=== PATIENT | female | born 1935 | race Caucasian/White ===

== ENCOUNTER → 2017-07-11 08:04 | Outpatient (CLI) | payer MEDICARE, BC | END | disposition home or self-care (01) | LOC: D.RT 08:00 | DX: R06.09 Other forms of dyspnea (principal) ==

== ENCOUNTER → 2017-12-18 13:02 | Outpatient (CLI) | payer MEDICARE, BC ==
[~2017-12-18 13:02] MED LIST: AMITRIPTYLINE100 MG PO; CARDURA1 MG PO; CELEXA20 MG PO; GLUCOPHAGE500 MG PO; HYZAAR 100-25 T1 TAB PO; K-TAB10 MEQ PO; MOBIC7.5 MG PO; NORVASC2.5 MG PO; OXYBUTYNIN CHLOR5 MG PO; PRAVASTATIN SOD10 MG PO; TEMAZEPAM30 MG PO; TRILEPTAL150 MG PO
[2017-12-26 08:17] VITALS: BMI 30.1
== END | disposition home or self-care (01) ==
LOC: D.RT 13:02
DX: J98.6 Disorders of diaphragm (principal); J45.909 Unspecified asthma, uncomplicated

== ENCOUNTER 2017-12-26 07:32 | Outpatient (CLI) | payer MEDICARE, BC ==
[~2017-12-26] VITALS: Ht 162.6 cm; Wt 79.5 kg
--- NOTE | ~2017-12-26 | OP ---
PATIENT NAME: CHARMAINE FREEMAN MEDICAL RECORD: [id number] :33 LOCATION:D.CAT ADMISSION DATE: SURGEON: HOLLIE BEGUM MD DATE OF OPERATION: 12/26/2017 DATE OF SERVICE: 12/26/2017 PROCEDURES: 1. Left heart catheterization. 2. Selective coronary angiography. 3. Left ventriculogram. 4. Intravascular ultrasound. INDICATION: Chest pain compatible with angina. PROCEDURE IN DETAIL: After informed consent was obtained and after a detailed description of risks, benefits as well as alternative therapies, the patient elected to proceed with angiogram and heart catheterization. The right radial area was prepped, draped in normal sterile fashion. Right radial artery was cannulated via modified Seldinger technique with placement of 5-Kiswahili sheath. All catheters exchanged through this sheath. FINDINGS: Left ventriculogram was performed in standard 30-degree ESTRELLA view, reveals good cardiac wall motion throughout all segments. Overall ejection fraction estimated 60%. SELECTIVE CORONARY ANGIOGRAPHY: Left main, left anterior descending, left circumflex, and right coronary artery are all smooth-walled vessels. No angiographic evidence of coronary artery disease. There was a questionable area in a band on the left anterior descending; however, intravascular ultrasound revealed no disease, only a bend in the artery at this point. OVERALL IMPRESSION: No coronary disease is present. Chest pain is noncardiac in etiology. TRANSINT:[id number] Voice Confirmation ID: [id number] DOCUMENT ID: [id number] HOLLIE BEGUM MD at 1950 CC: [id number] DICTATION DATE: 12/26/17 0955 SENIOR QC TECHNICIAN: 12/26/17 1054 [facility] CLI 12/26/[address] [address]
--- NOTE | ~2017-12-26 | HEMODYNAMI ---
PATIENT:CHARMAINE FREEMAN MEDICAL RECORD: [id number] : 33 LOCATION:[facility] ADMISSION DATE: 12/26/17 Generatedon:12/26/20179:55 Patient name: CHARMAINE FREEMAN Patient #: [id number] SSN: : 1935 Date of study: 12/26/2017 Page: Of Hemodynamic Procedure Report Patient Data Patient Demographics Procedure consent was obtained First Name: CHARMAINE Gender: Female Last Name: PETE : 1935 Middle Initial: A Age: 82 year(s) Patient #: [id number] Race: Unknown Additional ID: [id number] Contact details Address: [address] [place] [address] State: [place] City: [facility] Zip code: [address] Past Medical History Allergies Allergen Reaction Date Comments Reported Penicillins 12/26/2017 Admission Admission Data Admission Date: 12/26/2017 Admission Time: 7:32 Height (in.): 5.5 BSA: 0.32 (m2) Height (cm.): 13.97 BMI: 4346.25 (kg/m2) Weight (lbs.): 187 Weight (kg.): 84.82 Lab Results Lab Result Date: 12/26/2017 Lab Result Time: 0:00 Biochemistry Name Units Result Min Max BUN mg/dl 12 --(-*--)-- 7 18 Creatinine mg/dl 0.9 --(-*--)-- 0.6 1.3 CBC Name Units Result Min Max Hemoglobin g/dl 12.5 *-(----)-- 13.5 17.5 Procedure Procedure Types Cath Procedure Diagnostic Procedure [facility] w/Coronaries FFR/IVUS Intra-Coronary IVUS Initial Procedure Description Procedure Date Procedure Date: 12/26/2017 Procedure Start Time: 9:42 Procedure End Time: 9:54 Procedure Staff Name Function Angel Mccauley MD Performing Physician Delonte Jimenez RT Monitor Stephanie Campoverde RT Scrub Colten Lorigan RN Nurse Procedure Data Cath Procedure Fluoroscopy Diagnostic fluoroscopy Total fluoroscopy Time: 2.7 time: 2.7 min min Diagnostic fluoroscopy Total fluoroscopy dose: 378 dose: 378 mGy mGy Contrast Material Contrast Material Type Amount (ml) Isovue 300 49 Entry Location Entry Primary Successful Side Size Upsize Upsize Entry Closure Conner ccessful Closure Location (Fr) 1 (Fr) 2 (Fr) Remarks Device Remarks Radial Right 6 Fr Mechanical artery Short Compression Diagnostic catheters Device Type Used For End Catheter Placement DIAGNOSTIC Denison 110cm 5 LV Angiography Fr catheter ([id number]) DIAGNOSTIC AR 2 MOD 5 Fr Right Coronary catheter ([id number]) Angiography Procedure Complications No complications Procedure Medications Medication Administration Route Dosage 0.9% NaCl I.V. 100 ml/hr Oxygen etCO2 Nasal cannula 2 l/min Heparin Flush Bag added to field 2 bags (1000units/500ml NS) Lidocaine 2% added to field 20 Radial Cocktail added to field 1 syringe (Verapomil 2mg/Nitro 400mcg/Heparin 1500units) Versed I.V. 2 mg Fentanyl I.V. 100 mcg Versed I.V. 1 mg Versed I.V. 1 mg Radial Cocktail I.A. 1 syringe (Verapomil 2mg/Nitro 400mcg/Heparin 1500units) Hemodynamics Rest BSA: 0.32 (m2) HGB: 12.5 (g/dl) O2 Consumption: Estimated: 29.23 (ml/min) O2 Con sumption indexed: Estimated:91.34 (ml/min/m) Heart Rate: 76 (bpm) Pressure Samples Time Site Value (mmHg) Purpose Heart Use Rate(bpm) 9:44 LV 64/43,61 Snapshot 86 Snapshots Pre Cath Intra NCS Post Cath Vital Signs Time Heart Resp SPO2 etCO2 NIBP (mmHg) Rhythm Pain Sedation Rate (ipm) (%) (mmHg) Status Level (bpm) 9:00:02 80 18 99 36.9 137/80(112) NSR 0 (11) 10(A) , No pain 9:04:47 71 12 96 41.4 130/77(104) NSR 0 (11) 10(A) , No pain 9:09:30 72 19 95 27.1 122/69(103) NSR 0 (11) 10(A) , No pain 9:14:14 74 18 95 18.1 121/74(100) NSR 0 (11) 10(A) , No pain 9:18:59 72 19 95 12.8 123/75(108) NSR 0 (11) 10(A) , No pain 9:23:44 76 14 96 12 131/74(104) NSR 0 (11) 10(A) , No pain 9:28:29 73 15 96 40.6 117/71(103) NSR 0 (11) 10(A) , No pain 9:33:11 74 16 96 39.9 120/65(102) NSR 0 (11) 10(A) , No pain 9:37:56 75 11 96 31.6 132/74(89) NSR 0 (11) 10(A) , No pain 9:42:41 78 12 96 39.2 121/70(95) NSR 0 (11) 9(A) , No pain 9:47:23 88 12 91 35.4 88/44(82) NSR 0 (11) 9(A) , No pain 9:52:41 89 12 93 36.1 109/59(76) NSR 0 (11) 9(A) , No pain Medications Time Medication Route Dose Verified Delivered Reason Notes Effectiveness by by 8:56:27 0.9% NaCl I.V. 100 Colten Colten Per ml/hr Millie Pinto physician RN RN 8:56:41 Oxygen etCO2 2 l/min Colten Colten Per Nasal Millie Pinto physician cannula RN RN 8:57:00 Heparin Flush added 2 bags Colten Colten used for Bag to Lorjessica Pinto procedure (1000units/500ml RN RN NS) 8:57:10 Lidocaine 2% added 20ml Colten Colten for local to vial Lorigan Lorigan anesthetic field SLADIVAR RN 8:57:30 Radial Cocktail added 1 Colten Colten used for (Verapomil to syringe Lorigan Lorigan procedure 2mg/Nitro field SALDIVAR RN 400mcg/Heparin 1500units) 9:36:12 Versed I.V. 2 mg Colten Colten for sedation Millie Pinto RN RN 9:36:26 Fentanyl I.V. 100 mcg Colten Colten for sedation Millie Pinto RN RN 9:39:56 Versed I.V. 1 mg Colten Colten for sedation Millie Pinto RN RN 9:41:03 Versed I.V. 1 mg Colten Abel for sedation Millie Pinto RN, RN 9:42:36 Radial Cocktail I.A. 1 Colten Ortiz for (Verapomil syringe Millie Mccauley MD vasodilation 2mg/Nitro RN 400mcg/Heparin 1500units) Procedure Log Time Note 8:30:28 Colten Pinto RN sent for patient. Start room use. 8:43:33 Signed procedure consent form obtained from patient. 8:43:34 Time tracking: Regular hours (M-F 7:00 - 5:00) 8:43:38 Plan of Care:Hemodynamics will remain stable., Cardiac rhythm will remain stable., Comfort level will be maintained., Respiratory function will remain adequate., Patient/ family verbilizes understanding of procedure., Procedure tolerated without complication., Recovers from procedure without complications.. 8:44:46 H&P Date Dictated: 12/21/2017 Within 30 days and on chart., H&P Addendum completed by physician on day of procedure. (MUST COMPLETE FOR ALL OUTPATIENTS). 8:44:55 Patient Height : 5.5 inches 8:45:00 Patient Weight : 187 lbs 8:45:09 Patient allergic to Penicillins 8:46:18 Lab Result : BUN 12 mg/dl 8:46:18 Lab Result : Creatinine 0.9 mg/dl 8:46:18 Lab Result : Hemoglobin 12.5 g/dl 8:48:11 Patient received from Pre/Post Procedure Room to CCL 1 Alert and oriented. Tansferred to table in Supine position. 8:48:11 Warm blankets applied, and main hugger turned on for patient comfort. 8:48:12 Correct patient and procedure confirmed by team. 8:48:12 ECG and BP/O2 sat monitors applied to patient. 8:56:27 0.9% NaCl 100 ml/hr I.V. was administered by Colten Pinto RN; Per physician; 8:56:41 Oxygen 2 l/min etCO2 Nasal cannula was administered by Colten Pinto RN; Per physician; 8:57:00 Heparin Flush Bag (1000units/500ml NS) 2 bags added to field was administered by Colten Pinto RN; used for procedure; 8:57:10 Lidocaine 2% 20ml vial added to field was administered by Colten Pinto RN; for local anesthetic; 8:57:30 Radial Cocktail (Verapomil 2mg/Nitro 400mcg/Heparin 1500units) 1 syringe added to field was administered by Colten Pinto RN; used for procedure; 8:57:33 Vital chart was started 8:58:44 Baseline sample Acquired. 8:58:47 Rhythm: sinus rhythm 8:58:48 Full Disclosure recording started 8:58:50 Pre-procedure instructions explained to patient. 8:58:50 Pre-op teaching completed and patient verbalized understanding. 8:58:52 Family in patients room. 8:58:59 Patient NPO since Midnight. 8:59:05 Is the patient allergic to Iodine/contrast media? No. 8:59:07 Is patient on blood thinner?No 8:59:09 Patient diabetic? Yes. 8:59:10 If diabetic: On Metformin? Yes 8:59:14 If on Metformin: Last Dose? 12/24/2017 8:59:16 ----Pre-sedation anethsthesia assessment.---- 8:59:17 Snore? No 8:59:21 Previous problem with sedation/anesthesia? No ? 8:59:22 Sleep apnea? No 8:59:25 Deviated septum? No 8:59:27 Opens mouth fully? Yes 8:59:28 Sticks out tongue? Yes 8:59:31 Airway obstruction? No ? 8:59:33 Dentures? No ? 8:59:38 Pre procedure: right dorsailis pedis pulse 1+ Palpable, but thready & weak; easily obliterated 8:59:40 Patient pain scale 0/10 ?. 8:59:44 IV patent on arrival in left antecubital with 0.9% NaCl at 10ml/hr. 8:59:47 Lab results completed and on chart. 8:59:50 Right Radial & Right Groin area was prepped with chlora-prep and draped in sterile fashion 8:59:51 Alarms reviewed by ROsiel N. 8:59:52 Sharps counted by scrub and verified by ROsielN. 8:59:55 Physician paged 9:04:01 Zero performed for pressure channel P1 9:35:32 --------ALL STOP TIME OUT------ 9:35:32 Final Timeout: patient, procedure, and site verified with staff and physician. All members of the team are in agreement. 9:35:34 Right Radial & Right Groin site verified by team. 9:35:37 Physical assessment completed. ASA score P 2 - A patient with mild systemic disease as per Angel Mccauley MD. 9:35:41 Sedation plan: IV Moderate Sedation Medication:Versed, Fentanyl 9:36:12 Versed 2 mg I.V. was administered by Colten Pinto RN; for sedation; 9:36:26 Fentanyl 100 mcg I.V. was administered by Colten Pinto RN; for sedation; 9:39:56 Versed 1 mg I.V. was administered by Colten Pinto RN; for sedation; 9:41:03 Versed 1 mg I.V. was administered by Colten Pinto RN; for sedation; 9:41:03 Zero performed for pressure channel P1 9:41:14 Use device set Radial Dx or PCI 9:41:16 ACIST Syringe (87953) opened to sterile field. 9:41:17 Medline Cath Pack ([id number]) opened to sterile field. 9:41:17 Bag Decanter (2002S) opened to sterile field. 9:41:17 DIAGNOSTIC WIRE .035 260cm J wire (800858) opened to sterile field. 9:41:18 ACIST Hand Control (70968) opened to sterile field. 9:41:19 ACIST Manifold (19433) opened to sterile field. 9:41:19 Tegaderm 4 x 4 (1626W) opened to sterile field. 9:41:20 MBrace Wrist Support ([id number]) opened to sterile field. 9:41:21 NEEDLE Cook 21G 4cm Radial (L20400) opened to sterile field. 9:41:23 TR BAND Standard (BSM42PXS) opened to sterile field. 9:41:25 SHEATH 6Fr Prelude Radial ([id number]) opened to sterile field. 9:41:54 Procedure started. 9:42:13 Local anesthetic to right radial artery with Lidocaine 2% by Angel Mccauley MD.INITIAL ACCESS ONLY 9:42:21 A 6 Fr Short sheath was inserted into the Right Radial artery 9:42:36 Radial Cocktail (Verapomil 2mg/Nitro 400mcg/Heparin 1500units) 1 syringe I.A. was administered by Angel Mccauley MD; for vasodilation; 9:43:50 A DIAGNOSTIC Denison 110cm 5 Fr catheter (557397) was advanced over the wire and used for LV Angiography. 9:43:53 LV angiography performed. 9:44:32 LCA angiography performed. 9:46:19 Catheter removed. 9:46:55 A DIAGNOSTIC AR 2 MOD 5 Fr catheter ([id number]) was advanced over the wire and used for Right Coronary Angiography. 9:47:24 RCA angiography performed. 9:47:24 Catheter removed. 9:47:54 INFLATOR Merit BasixCompak (RH0119) opened to sterile field. 9:47:55 CHOICE PT Extra Support 182cm wire ([id number]) opened to sterile field. 9:48:27 6 Fr XBLAD 3.5 guide catheter was inserted over the wire 9:48:32 CPTES wire advanced. 9:48:36 IVUS catheter advanced over wire. 9:48:37 IVUS pass to LAD lesion performed. 9:48:52 SonarMed [place] IVUS Catheter (81170M) opened to sterile field. 9:49:47 Procedure type changed to Cath procedure, Diagnostic procedure, LHC, LHC w/Coronaries, FFR/IVUS, Intra-Coronary IVUS Initial 9:52:07 IVUS catheter removed over wire. 9:52:14 Wire removed. 9:52:15 Guide catheter removed. 9:52:24 Sheath removed intact; hemostasis achieved with Mechanical Compression to the Right Radial artery. 9:52:28 Procedure ended.(Physican Out) 9:52:43 Contrast amount:Isovue 300 49ml. 9:52:48 Fluoroscopy time 02.70 minutes. 9:52:53 Fluoroscopy dose: 378 mGy 9:52:53 Flurop Dose total: 378 9:52:55 Sharps counted by scrub and verified by R.N. 9:53:25 TR band inflated with 12cc of air. 9:53:34 Post right radial artery:stable 9:53:36 Post Procedure Pulses reassessed and unchanged 9:53:39 Post procedure: right radial pulse 1+ Palpable, but thready & weak; easily obliterated. 9:53:42 Post procedure rhythm: sinus rhythm 9:53:44 Post procedure instruction explained to patient.Patient verbalizes understanding. 9:53:45 Procedure and supply charges have been captured, reviewed, submitted and are correct. 9:54:12 Procedure Complication : No complications 9:54:14 Vital chart was stopped 9:54:15 See physician's report for complete and final results. 9:54:19 Report given to Pre/Post Procedure Room. 9:54:24 Patient transfered to Pre/Post Procedure Room with Stretcher. 9:54:26 Procedure ended. 9:54:26 Full Disclosure recording stopped 9:54:29 End room use (Document Last) Device Usage Item Name Manufacture Quantity Catalog Number Hospital Part Current M inimal Lot# / Charge Number Stock Stock Serial# Code ACIST Syringe Acist 1 40498 555597 852339 187929 2 0 (30709) [employer] Inc Medline Cath Cardinal 1 [id number] 672083 43905 678985 5 Pack Health ([id number]) Bag Decanter Microtek 1 2001S 224601 61589 818524 5 (2001S) Medical Inc. DIAGNOSTIC WIRE [place] 1 758486 974263 775415 821032 3 0 .035 260cm J wire (855035) ACIST Hand Acist 1 87089 560166 873349 258471 5 Control (60554) [employer] Inc ACIST Manifold Acist 1 70251 248157 372135 498348 5 (12054) Medical Systems Inc Tegaderm 4 x 4 3M 1 1626W 558190 393400 576349 5 (1626W) MBrace Wrist Advanced 1 140-0250-00 115550 26048 866439 5 Support Vascular ([id number]) Dynamics NEEDLE Cook 21G Cook Medical 1 E58583 935439 961102 189164 5 4cm Radial (H99371) TR BAND Terumo 1 DUT73-[id number] 704258 229943 479993 4 0 Standard ([id number]) SHEATH 6Fr Merit 1 [id number] 173747 757293 210279 5 Prelude Radial Medical ([id number]) DIAGNOSTIC Terumo 1 40-4360 683508 148104 264486 5 Denison 110cm 5 Fr catheter (063872) DIAGNOSTIC AR 2 Cardinal 1 [id number] 464681 946343 493624 2 0 MOD 5 Fr Health catheter (798648M) INFLATOR Merit Merit 1 BX8401 770841 108765 393598 1 5 [facility] Medical (NW5770) CHOICE PT Extra Dixon 1 [id number] 544628 751826 456495 5 Support 182cm Scientific wire ([id number]) Norco Norco 1 38429L 319309 409111 013616 8 [place] IVUS Catheter (88158T) Signature Audit [place] Stage Time Signature Unsigned Intra-Procedure 12/26/2017 Delonte Jimenez RT(R) 9:55:21 AM Signatures Monitor : Delonte Jimenez RT Signature : Date : Time : [place] [id number] [place] [address]
[2017-12-26] MEDS ORDERED: HYZAAR 100-25 T1 TAB PO (07:49)
[2017-12-26] MEDS ORDERED: TEMAZEPAM30 MG PO (07:50)
[2017-12-26] MEDS ORDERED: OXYBUTYNIN CHLOR5 MG PO (07:50)
[2017-12-26] MEDS ORDERED: GLUCOPHAGE500 MG PO (07:50)
[2017-12-26] MEDS ORDERED: NORVASC2.5 MG PO (07:50)
[2017-12-26] MEDS ORDERED: CARDURA1 MG PO (07:51)
[2017-12-26] MEDS ORDERED: TRILEPTAL150 MG PO (07:52)
[2017-12-26] MEDS ORDERED: K-TAB10 MEQ PO (07:52)
[2017-12-26] MEDS ORDERED: PRAVASTATIN SOD10 MG PO (07:52)
[2017-12-26] MEDS ORDERED: MOBIC7.5 MG PO (07:53)
[2017-12-26] MEDS ORDERED: CELEXA20 MG PO (07:53)
[2017-12-26] MEDS ORDERED: AMITRIPTYLINE100 MG PO (07:55)
[2017-12-26 08:17] VITALS: BP 131/78; Ht 162.6 cm; Wt 79.5 kg
[2017-12-26 08:20] LABS: BASOPHILS 0.5 % (0-2); HEMATOCRIT 36.7 % (36.0-48.0); HEMOGLOBIN 12.5 g/dL (12-16); IMMATURE GRANULOCYTES 0.2 % (0-5); LYMPHOCYTES 34.9 % (15-50); MCH 29.3 pg (26.0-34.0); MCHC 34.1 g/dL (31.0-37.0); MCV 86.2 fL (80.0-100.0); MEAN PLATELET VOLUME 9.7 fL (7.4-10.4); MONOCYTES 9.8 % (2-11); NEUTROPHILS 51.6 % (40-80); PLATELET COUNT 222 10x3/uL (130-400); RBC 4.26 10x6/uL (4.00-5.40); RDW 13.6 % (11.5-14.5); WBC 4.4 10x3/uL (4.8-10.8)
[2017-12-26 08:27] LABS: ANION GAP 9.8 mmol/L (8-16); CALCIUM 8.7 mg/dL (8.5-10.1); CARBON DIOXIDE 29.4 mmol/L (21.0-32.0); CREATININE - SERUM 0.9 mg/dL (0.6-1.3); POTASSIUM - SERUM 3.2 mmol/L (3.5-5.1)
== END 2017-12-26 12:10 ==
LOC: D.CATH 07:32
PROVIDERS: Internal Medicine Interventional Cardiology
DX: R07.89 Other chest pain (principal)